=== PATIENT | male | born 1995 | race Caucasian/White ===

== ENCOUNTER 2018-02-14 00:34 | Emergency (ER) | payer OTHER, SELFPAY ==
[2018-02-14] MEDS ORDERED: NA CHLORIDE 0.9% 1,000 ML ONE (01:15)
[2018-02-14] MEDS ORDERED: ONDANSETRON 4 MG/2 ML VIAL ONE (01:15)
[2018-02-14 01:35] LABS: Absolute Lymphocytes (CBC) 0.4 K/uL (0.7-4.9); Absolute Monocytes 0.5 K/uL (0.1-1.3); Absolute Neutrophil 10.7 K/uL (1.8-8.0); Basophils % 0.3 % (0-1.3); Eosinophils % 0.3 % (0-4.4); Lymphocytes % 3.2 % (15.3-44.8); MCH 29.4 pg (27.0-35.0); MCV 82.7 fL (80-100); MPV 10.4 fL (7.6-11.3); Monocytes % 4.1 % (3.3-12.3); RBC Red Blood Cell Count 6.29 M/uL (4.33-5.43)
[2018-02-14 01:45] LABS: Bilirubin Total 1.1 mg/dL (0.2-1.0); Potassium 4.7 mmol/L (3.5-5.1); Protein, Total 8.4 g/dL (6.4-8.2)
--- NOTE | 2018-02-14 02:03 | ER ---
Nurse's Notes [facility] Name: Valdemar Welsh JR. Age: 22 yrs Sex: Male : 1995 Arrival Date: 02/14/2018 Time: 00:38 Bed 16 Private MD: Diagnosis: Nausea and vomiting;Viral and other specified intestinal infections Presentation: 02/14 00:47 Presenting complaint: Patient states: I have been vomiting since 8pm tonight and had a kr2 loose stool and my stomach is cramping. Transition of care: patient was not received from another setting of care. Onset of symptoms was February 13, 2018 at 20:00. Risk Assessment: Do you want to hurt yourself or someone else? Patient reports no desire to harm self or others. Initial Sepsis Screen: Does the patient meet any 2 criteria? No. Patient's initial sepsis screen is negative. Does the patient have a suspected source of infection? No. Patient's initial sepsis screen is negative. Care prior to arrival: Medication(s) given: 2 Pepto tabs. 00:47 Method Of Arrival: Ambulatory kr2 00:47 Acuity: RICKEY 3 kr2 Triage Assessment: 00:50 General: Appears in no apparent distress. uncomfortable, Behavior is calm, cooperative. kr2 GI: Abdomen is flat, non-distended, Reports diarrhea, nausea, vomiting. 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 - Social history:: Smoking status: Patient/guardian denies using tobacco. - Ebola Screening: : No symptoms or risks identified at this time. - Family history:: not pertinent. - Hospitalizations: : No recent hospitalization is reported. - History obtained from: . Screenin:19 Abuse screen: Denies threats or abuse. Denies injuries from another. Nutritional ao screening: No deficits noted. Tuberculosis screening: No symptoms or risk factors identified. Fall Risk None identified. Assessment: 00:48 General: Appears in no apparent distress. uncomfortable, Behavior is calm, cooperative, ao appropriate for age. Pain: Complains of pain in epigastric area Pain does not radiate. Pain currently is 8 out of 10 on a pain scale. Neuro: Level of Consciousness is awake, alert, obeys commands, Oriented to person, place, time, situation, Appropriate for age Moves all extremities. Full function Speech is normal, Facial symmetry appears normal, Pupils are PERRLA. Cardiovascular: Capillary refill < 3 seconds Patient's skin is warm and dry. Respiratory: Airway is patent Respiratory effort is even, unlabored, Respiratory pattern is regular, symmetrical. GI: Abdomen is flat, non-distended, Bowel sounds present X 4 quads. Reports upper abdominal pain, nausea, vomiting. : No signs and/or symptoms were reported regarding the genitourinary system. EENT: No signs and/or symptoms were reported regarding the EENT system. Derm: No signs and/or symptoms reported regarding the dermatologic system. Skin is intact, Skin is pink, warm \T\ dry. Skin temperature is warm. Musculoskeletal: No signs and/or symptoms reported regarding the musculoskeletal system. 01:59 Reassessment: Patient appears in no apparent distress at this time. Patient and/or ao family updated on plan of care and expected duration. Pain level reassessed. Provided with cup of water. Vital Signs: 00:48 BP 133 / 92; Pulse 115; Resp 18; Temp 98.4; Pulse Ox 100% on R/A; ao 00:51 Height 6 ft. 160 in. (589.28 cm); Pain 8/10; kr2 01:59 BP 111 / 97; Pulse 117; Resp 16; Pulse Ox 100% ; Pain 0/10; ao 02:31 BP 115 / 97; Pulse 98; Resp 18; Pulse Ox 100% ; ao ED Course: 00:38 Patient arrived in ED. ag3 00:47 Humberto Ravi, RN is Primary Nurse. ao 00:48 Triage completed. kr2 00:51 Arm band placed on right wrist. kr2 00:57 [facility] kav 00:57 Salinas Martinez MD is Attending Physician. kav 01:10 Inserted saline lock: 20 gauge in right antecubital area, using aseptic technique. ao Blood collected. 01:19 Patient has correct armband on for positive identification. Pulse ox on. NIBP on. ao 02:30 No provider procedures requiring assistance completed. IV discontinued, intact, ao bleeding controlled, No redness/swelling at site. Pressure dressing applied. Administered Medications: 01:13 Drug: NS 0.9% 1000 ml Route: IV; Rate: 1000 ml; Site: left antecubital; ao 02:00 Follow up: IV Status: Completed infusion; IV Intake: 1000ml ao 01:14 Drug: Zofran 4 mg Route: IVP; Site: left antecubital; ao 02:00 Follow up: Response: No adverse reaction ao Outcome: 02:02 Discharge ordered by MD. cunha 02:31 Discharged to home ambulatory. ao 02:31 Condition: stable 02:31 Discharge instructions given to patient, Instructed on discharge instructions, follow up and referral plans. Demonstrated understanding of instructions, follow-up care, medications, Prescriptions given X 1. 02:32 Patient left the ED. ao Signatures: Magdalena Shafer, LIMOUSINE AND HEARSE UPHOLSTERER Humberto Man RN RN ao Reaves, Karey, RN RN Ann Marie [facility]
--- NOTE | 2018-02-14 02:03 | EDPHYS ---
Physician Documentation [facility] Name: Valdemar Welsh JR. Age: 22 yrs Sex: Male : 1995 Arrival Date: 02/14/2018 Time: 00:38 Bed 16 Private MD: ED Physician Salinas Martinez HPI: 02/14 00:58 This 22 yrs old Male presents to ER via Ambulatory with complaints of kav Vomiting. 01:02 Onset: The symptoms/episode began/occurred acutely, 3 hour(s) ago. Possible causes: kav sick contacts. Associated signs and symptoms: The patient has no apparent associated signs or symptoms. Severity of symptoms: At their worst the symptoms were moderate just prior to arrival. The patient has not experienced similar symptoms in the past. The patient has not recently seen a physician. 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 - Social history:: Smoking status: Patient/guardian denies using tobacco. - Ebola Screening: : No symptoms or risks identified at this time. - Family history:: not pertinent. - Hospitalizations: : No recent hospitalization is reported. - History obtained from: . ROS: 01:03 Constitutional: Negative for fever, chills, and weight loss, Eyes: Negative for injury, kav pain, redness, and discharge, ENT: Negative for injury, pain, and discharge, Neck: Negative for injury, pain, and swelling, Cardiovascular: Negative for chest pain, palpitations, and edema, Respiratory: Negative for shortness of breath, cough, wheezing, and pleuritic chest pain, Back: Negative for injury and pain, : Negative for injury, bleeding, discharge, and swelling, MS/Extremity: Negative for injury and deformity, Skin: Negative for injury, rash, and discoloration, Neuro: Negative for headache, weakness, numbness, tingling, and seizure, Psych: Negative for depression, anxiety, suicide ideation, homicidal ideation, and hallucinations, Allergy/Immunology: Negative for hives, rash, and allergies, Endocrine: Negative for neck swelling, polydipsia, polyuria, polyphagia, and marked weight changes, Hematologic/Lymphatic: Negative for swollen nodes, abnormal bleeding, and unusual bruising. 01:03 Abdomen/GI: Positive for nausea and vomiting. Exam: 01:03 Constitutional: This is a well developed, well nourished patient who is awake, alert, kav and in no acute distress. Head/Face: Normocephalic, atraumatic. Eyes: Pupils equal round and reactive to light, extra-ocular motions intact. Lids and lashes normal. Conjunctiva and sclera are non-icteric and not injected. Cornea within normal limits. Periorbital areas with no swelling, redness, or edema. ENT: Nares patent. No nasal discharge, no septal abnormalities noted. Tympanic membranes are normal and external auditory canals are clear. Oropharynx with no redness, swelling, or masses, exudates, or evidence of obstruction, uvula midline. Mucous membranes moist. Neck: Trachea midline, no thyromegaly or masses palpated, and no cervical lymphadenopathy. Supple, full range of motion without nuchal rigidity, or vertebral point tenderness. No Meningismus. Chest/axilla: Normal chest wall appearance and motion. Nontender with no deformity. No lesions are appreciated. Cardiovascular: Regular rate and rhythm with a normal S1 and S2. No gallops, murmurs, or rubs. Normal PMI, no JVD. No pulse deficits. Respiratory: Lungs have equal breath sounds bilaterally, clear to auscultation and percussion. No rales, rhonchi or wheezes noted. No increased work of breathing, no retractions or nasal flaring. Back: No spinal tenderness. No costovertebral tenderness. Full range of motion. Skin: Warm, dry with normal turgor. Normal color with no rashes, no lesions, and no evidence of cellulitis. MS/ Extremity: Pulses equal, no cyanosis. Neurovascular intact. Full, normal range of motion. Neuro: Awake and alert, GCS 15, oriented to person, place, time, and situation. Cranial nerves II-XII grossly intact. Motor strength 5/5 in all extremities. Sensory grossly intact. Cerebellar exam normal. Normal gait. Psych: Awake, alert, with orientation to person, place and time. Behavior, mood, and affect are within normal limits. 01:03 Abdomen/GI: Inspection: abdomen appears normal, Bowel sounds: normal, Palpation: abdomen is soft and non-tender, in all quadrants. Vital Signs: 00:48 BP 133 / 92; Pulse 115; Resp 18; Temp 98.4; Pulse Ox 100% on R/A; ao 00:51 Height 6 ft. 160 in. (589.28 cm); Pain 8/10; kr2 01:59 BP 111 / 97; Pulse 117; Resp 16; Pulse Ox 100% ; Pain 0/10; ao 02:31 BP 115 / 97; Pulse 98; Resp 18; Pulse Ox 100% ; ao MDM: 00:57 Medical screening is not applicable. [facility] 01:03 Data reviewed: vital signs, nurses notes. kav 01:45 Awaiting: labs results. [facility] 02/14 00:59 Order name: CBC with Diff [facility] 02/14 00:59 Order name: CMP; Complete Time: 01:54 [facility] 02/14 01:55 Interpretation: Abnormal. [facility] 02/14 00:59 Order name: Influenza Screen (a \T\ B); Complete Time: 01:59 [facility] 02/14 01:59 Interpretation: Within normal limits. [facility] 02/14 01:47 Order name: Manual Differential EDMS Administered Medications: 01:13 Drug: NS 0.9% 1000 ml Route: IV; Rate: 1000 ml; Site: left antecubital; ao 02:00 Follow up: IV Status: Completed infusion; IV Intake: 1000ml ao 01:14 Drug: Zofran 4 mg Route: IVP; Site: left antecubital; ao 02:00 Follow up: Response: No adverse reaction ao Disposition: 06:39 Co-signature as Attending Physician, Salinas Martinez MD I agree with the assessment and randy plan of care. Disposition: 02/14/18 02:02 Discharged to Home. Impression: Nausea and vomiting, Viral and other specified intestinal infections. - Condition is Stable. - Discharge Instructions: Rotavirus Infection, Adult, Nausea and Vomiting, Adult, [id number]. - Prescriptions for Zofran 4 mg Oral Tablet - take 1 tablet by ORAL route every 12 hours As needed; 20 tablet. - Medication Reconciliation Form, Thank You Letter form. - Follow up: Private Physician; When: 2 - 3 days; Reason: Recheck today's complaints, Continuance of care, Re-evaluation by your physician. - Problem is new. - Symptoms have improved. - Notes: Ensure adequate hydration with Pedialyte and/or 1/2 H20 \T\amp; 1/2 Gatorade Signatures: Dispatcher [employer] EDMS Salinas Martinez, Magdalena Do MD, cha, WEATHERIZATION FIELD TECHNICIAN WEATHERIZATION FIELD TECHNICIAN Humberto Mendoza, RN RN ao Bridget Krishna RN RN kr2 Corrections: (The following items were deleted from the chart) 02:32 02:02 02/14/2018 02:02 Discharged to Home. Impression: Nausea and vomiting; Viral and ao other specified intestinal infections. Condition is Stable. Forms are Medication Reconciliation Form, Thank You Letter, Antibiotic Education, Prescription Opioid Use. Follow up: Private Physician; When: 2 - 3 days; Reason: Recheck today's complaints, Continuance of care, Re-evaluation by your physician. Problem is new. Symptoms have improved. alphonse
[2018-02-14 03:21] LABS: Blood Morphology Comment NOT SEEN (NOT SEEN); Platelet Estimate ADEQ
== END 2018-02-14 02:32 | disposition home or self-care (01) ==
LOC: ER 00:34
DX: A08.4 Viral intestinal infection, unspecified (principal); A08.8 Other specified intestinal infections
CPT/HCPCS: 36415; 80053; 85025; 87804; 96361; 96374; 99284; J2405; J7030